=== PATIENT | female | born 1965 | race African-American/Black ===

== ENCOUNTER 2017-04-05 21:53 | Emergency (ER) | payer MEDICAID ==
[~2017-04-05] VITALS: Ht 170.2 cm; Wt 95.5 kg
[~2017-04-05 21:53] MED LIST: ASPI-1159 PO; COR6 PO; COZAAR; LOT10 PO; NITR0.4T3 SL
[2017-04-06 00:34] VITALS: BP 120/88
== END 2017-04-06 00:33 | disposition home or self-care (01) ==
LOC: ER 22:31
DX: F41.0 Panic disorder [episodic paroxysmal anxiety] (principal); R03.0 Elevated blood-pressure reading, without diagnosis of hypertension; R07.89 Other chest pain; Z88.8 Allergy status to other drugs, medicaments and biological substances; Z88.5 Allergy status to narcotic agent; Z79.899 Other long term (current) drug therapy
CPT/HCPCS: 93005; 99284; Z7610

== ENCOUNTER 2018-09-07 03:16 | Emergency (ER) | payer MEDICAID ==
[~2018-09-07] VITALS: Ht 170.2 cm; Wt 91.0 kg
[~2018-09-07 03:16] MED LIST changes: +ALPR2TAB2 MT; +AMLO10TA80 PO; -COZAAR; +LOSA25TA3 PO; -NITR0.4T3 SL; +NITR0.4T49 SL; +S350 MT
[2018-09-07] MEDS ORDERED: KETOROLAC 60MG/2ML VIAL IM STA (06:51)
[2018-09-07] MEDS ORDERED: IPRATROPIUM BROMIDE (0.02%) 0.5MG/2.5ML NEB HHN STA (06:51)
[2018-09-07] MEDS ORDERED: ALBUTEROL (0.083%) 2.5MG/3ML NEB HHN STA (06:51)
[2018-09-07 07:29] LABS: CLARITY URINE CLEAR (CLEAR); COLOR URINE AMBER (YELLOW); KETONES URINE NEGATIVE (NEGATIVE); LEUKOCYTE ESTERASE URINE NEGATIVE (NEGATIVE); NITRITE URINE NEGATIVE (NEGATIVE); OCCULT BLOOD URINE NEGATIVE (NEGATIVE); PROTEIN URINE 3+ (NEGATIVE); SPECIFIC GRAVITY URINE 1.031 (1.005-1.030)
[2018-09-07] MEDS ORDERED: METHYLPREDNISOLONE SOD SUCC 125 MG/2 ML VIAL IM STA (07:38)
[2018-09-07 08:03] LABS: BASOPHILS % 0.7 % (0.0-2.0); EOSINOPHILS % 1.1 % (0.0-5.0); HEMATOCRIT. 38.2 % (36.0-48.0); HEMOGLOBIN. 12.1 g/dL (12.0-16.0); LYMPHOCYTES % 19.7 % (20.0-50.0); MEAN CORPUSCULAR HEMOGLOBIN 25.4 pg (28.0-32.0); MEAN CORPUSCULAR VOLUME 79.9 fL (81.0-99.0); MEAN PLATELET VOLUME 7.6 fl (7.4-10.4); NEUTROPHILS % 73.5 % (40.0-76.0); PLATELET 263 x1000/uL (130-400); RED BLOOD CELL COUNT 4.78 mill/uL (4.2-5.4)
[2018-09-07 08:05] LABS: CHLORIDE 107 mEq/L (98-107)
[2018-09-07 08:56] VITALS: BP 159/99
== END 2018-09-07 09:00 | disposition home or self-care (01) ==
LOC: ER 03:16
DX: J20.9 Acute bronchitis, unspecified (principal); J45.909 Unspecified asthma, uncomplicated; F12.10 Cannabis abuse, uncomplicated; I25.2 Old myocardial infarction; E11.9 Type 2 diabetes mellitus without complications; I10 Essential (primary) hypertension; I25.10 Atherosclerotic heart disease of native coronary artery without angina pectoris; Z79.82 Long term (current) use of aspirin; Z79.899 Other long term (current) drug therapy; Z88.5 Allergy status to narcotic agent
CPT/HCPCS: 36415; 71045; 80053; 81003; 81025; 85025; 94640; 96372; 99284; J1885; J2930; J7611

== ENCOUNTER 2020-02-01 08:25 | Inpatient (IN) | payer MEDICAID ==
[~2020-02-01] VITALS: Ht 170.2 cm; Wt 120.3 kg
[~2020-02-01 08:25] MED LIST changes: -ASPI-1159 PO; +ASPI-1497 PO; +BENA10TA75 PO; +CARI350T28 MT; -LOT10 PO; -S350 MT
[2020-02-01] MEDS ORDERED: KETOROLAC 30MG/ML VIAL IV STA (08:49)
[2020-02-01 09:35] LABS: BASOPHILS % 0.9 % (0.0-2.0); EOSINOPHILS % 0.5 % (0.0-5.0); HEMOGLOBIN. 13.1 g/dL (12.0-16.0); MEAN CORPUSCULAR HEMOGLOBIN 25.4 pg (28.0-32.0); MEAN CORPUSCULAR VOLUME 79.3 fL (81.0-99.0); MEAN PLATELET VOLUME 7.9 fl (7.4-10.4); MONOCYTES % 9.1 % (2.0-8.0); NEUTROPHILS % 70.5 % (40.0-76.0); PLATELET 187 x1000/uL (130-400); RED BLOOD CELL COUNT 5.17 mill/uL (4.2-5.4); RED CELL DISTRIBUTION WIDTH 18.6 % (11.6-14.6)
[2020-02-01 09:39] LABS: CHLORIDE 102 mEq/L (98-107)
[2020-02-01 10:06] LABS: INR 1.2; PARTIAL THROMBOPLASTIN TIME 25.4 sec (23.4-31.0); PROTHROMBIN TIME 13.3 sec (9.6-11.0)
[2020-02-01] MEDS ORDERED: ASPIRIN 325MG TABLET PO ONE (10:15)
[2020-02-01] MEDS ORDERED: ASPIRIN 81MG EC TABLET PO NR (13:15)
[2020-02-01] MEDS ORDERED: FUROSEMIDE 40MG/4ML VIAL IVP NR (13:15)
[2020-02-01 13:34] LABS: *AMPHETAMINES SCREEN URINE NEGATIVE (NEGATIVE); *BARBITURATES SCREEN URINE NEGATIVE (NEGATIVE)
[2020-02-01 13:35] LABS: *BENZODIAZEPINES SCREEN URINE PRESUMTIVE POSITIVE (NEGATIVE); *COCAINE SCREEN URINE NEGATIVE (NEGATIVE); CANNABINOID URINE SCREEN PRESUMTIVE POSITIVE (NEGATIVE); METHADONE URINE SCREEN NEGATIVE (NEGATIVE); OPIATES URINE SCREEN NEGATIVE (NEGATIVE); PHENCYCLIDINE URINE SCREEN NEGATIVE (NEGATIVE)
[2020-02-01] MEDS ORDERED: ENOXAPARIN 40MG/0.4ML SYR SUBCUT SCH (13:45)
[2020-02-01] MEDS ORDERED: CLONIDINE 0.1MG TABLET PO PRN (13:45)
[2020-02-01] MEDS ORDERED: ONDANSETRON HCL 4MG/2ML INJ IV PRN (13:45)
[2020-02-01] MEDS ORDERED: ACETAMINOPHEN 325MG TABLET PO PRN (13:45)
[2020-02-01 14:06] LABS: PHOSPHORUS 3.3 mg/dL (2.5-4.9)
[2020-02-01] MEDS ORDERED: LOSARTAN POTASSIUM 25 MG TABLET PO NR (14:30)
[2020-02-01] MEDS ORDERED: CARVEDILOL 3.125 MG TABLET PO NR (14:30)
[2020-02-01] MEDS: ENOXAPARIN 30MG/0.3ML SYR SUBCUT SCH (14:41)
[2020-02-01] MEDS ORDERED: DEXTROSE 50% WATER 50ML SYRINGE IV PRN (19:15)
[2020-02-02] MEDS ORDERED: FUROSEMIDE 40MG/4ML VIAL IV SCH (03:05)
[2020-02-02 03:42] LABS: BASOPHILS % 0.8 % (0.0-2.0); HEMATOCRIT. 39.3 % (36.0-48.0); HEMOGLOBIN. 12.3 g/dL (12.0-16.0); LYMPHOCYTES % 21.5 % (20.0-50.0); MEAN CORPUSCULAR HEMOGLOBIN 25.1 pg (28.0-32.0); MEAN PLATELET VOLUME 7.9 fl (7.4-10.4); MONOCYTES % 12.6 % (2.0-8.0); NEUTROPHILS % 64.1 % (40.0-76.0); PLATELET 184 x1000/uL (130-400); RED BLOOD CELL COUNT 4.91 mill/uL (4.2-5.4); RED CELL DISTRIBUTION WIDTH 18.8 % (11.6-14.6)
[2020-02-02 03:52] LABS: CHLORIDE 104 mEq/L (98-107)
[2020-02-02 03:59] LABS: LDL CHOLESTEROL 51 mg/dL (5-100)
[2020-02-02 04:00] LABS: HDL CHOLESTEROL 19 mg/dL (40-59)
[2020-02-02 06:30] VITALS: BP 145/85
[2020-02-02] MEDS: INSULIN LISPRO (LOW DOSE) 100 UNITS/ML SUBCUT SCH ×3 (07:10→18:26)
[2020-02-02 08:00] VITALS: BP 134/89
[2020-02-02] MEDS: AMLODIPINE 5MG TABLET PO SCH ×2 (09:52→21:55)
[2020-02-02] MEDS: LOSARTAN POTASSIUM 25 MG TABLET PO SCH ×2 (09:53→21:55)
[2020-02-02] MEDS: CARVEDILOL 3.125 MG TABLET PO SCH ×2 (09:53→21:55)
[2020-02-02] MEDS: ENOXAPARIN 30MG/0.3ML SYR SUBCUT SCH ×2 (09:53→21:53)
[2020-02-02 10:44] VITALS: BP 134/89
[2020-02-02 12:00] VITALS: BP 119/81
[2020-02-02] MEDS: BLOOD SUGAR DIAGNOSTIC STRIP TEST SCH ×3 (12:17→21:55)
[2020-02-02 20:00] VITALS: BP 132/99
[2020-02-02] MEDS: ATORVASTATIN CALCIUM 20MG TABLET PO SCH (21:54)
[2020-02-02] MEDS: HYDROCODONE/ACETAMINOPHEN 5/325MG TABLET PO PRN (21:54)
[2020-02-03] VITALS: BP 103/59
[2020-02-03] MEDS: LORAZEPAM 2MG/ML CPJ IV PRN (00:08)
[2020-02-03] MEDS: INSULIN LISPRO (LOW DOSE) 100 UNITS/ML SUBCUT SCH ×5 (00:27→21:21)
[2020-02-03] MEDS: BLOOD SUGAR DIAGNOSTIC STRIP TEST SCH ×4 (06:32→21:17)
[2020-02-03 07:42] LABS: BASOPHILS % 0.6 % (0.0-2.0); HEMATOCRIT. 37.1 % (36.0-48.0); LYMPHOCYTES % 16.1 % (20.0-50.0); MEAN CORPUSCULAR HEMOGLOBIN 25.5 pg (28.0-32.0); MONOCYTES % 12.1 % (2.0-8.0); NEUTROPHILS % 70.2 % (40.0-76.0); PLATELET 187 x1000/uL (130-400); RED CELL DISTRIBUTION WIDTH 18.9 % (11.6-14.6)
[2020-02-03 07:45] LABS: CHLORIDE 101 mEq/L (98-107)
[2020-02-03 08:00] VITALS: BP_SYST 103; BP_SYST 142; BP_DIAS 68; BP_DIAS 82
[2020-02-03] MEDS: LOSARTAN POTASSIUM 25 MG TABLET PO SCH ×2 (09:00→21:16)
[2020-02-03] MEDS: AMLODIPINE 5MG TABLET PO SCH ×2 (09:00→21:19)
[2020-02-03] MEDS: CARVEDILOL 3.125 MG TABLET PO SCH ×2 (09:00→21:17)
[2020-02-03] MEDS ORDERED: IPRATROPIUM/ALBUTEROL 0.5-3(2.5)MG/3ML NEB HHN PRN (09:15)
[2020-02-03 09:51] LABS: BG BASE EXCESS -2.6 mmol/L (-2.0-2.0); BG CARBOXYHEMOGLOBIN 1.6 % (0.5-1.5); BG DEOXYHEMOGLOBIN 0.3 % (0.0-5.0); BG HCO3 ACT 24.5 mmol/L (22.0-26.0); BG METHEMOGLOBIN 0.8 % (0.0-1.5); BG OXYGEN SATURATION 99.7 % (92.0-98.5); BG OXYHEMOGLOBIN 97.3 % (94.0-97.0); BG PCO2 52.1 mmHg (35.0-45.0); BG PH 7.291 (7.350-7.450); BG PO2 463.7 mmHg (75.0-100.0); BG SAMPLE SITE LEFT RADIAL; BG TOTAL HEMOGLOBIN 13.3 g/dL (12.0-18.0); BG VENT MODE MASK - NRB
[2020-02-03] MEDS: ENOXAPARIN 30MG/0.3ML SYR SUBCUT SCH ×2 (11:26→21:16)
[2020-02-03] MEDS: FUROSEMIDE 40MG/4ML VIAL IV SCH (11:26)
[2020-02-03] MEDS ORDERED: LIDOCAINE HCL/PF 1% 2ML VIAL ONE (11:30)
[2020-02-03] MEDS: HYDROCODONE/ACETAMINOPHEN 5/325MG TABLET PO PRN ×2 (15:41→22:26)
[2020-02-03 16:00] VITALS: BP 139/79
[2020-02-03] MEDS ORDERED: IPRATROPIUM/ALBUTEROL 0.5-3(2.5)MG/3ML NEB HHN SCH (18:00)
[2020-02-03 20:00] VITALS: BP 120/81
[2020-02-03] MEDS: BUDESONIDE 0.5MG/2ML NEB HHN SCH (20:07)
[2020-02-03] MEDS: IPRATROPIUM/ALBUTEROL 0.5-3(2.5)MG/3ML NEB HHN SCH (20:07)
[2020-02-03] MEDS: ATORVASTATIN CALCIUM 20MG TABLET PO SCH (21:16)
[2020-02-04] VITALS: BP 112/71
[2020-02-04 04:00] VITALS: BP 110/84
[2020-02-04] MEDS: BLOOD SUGAR DIAGNOSTIC STRIP TEST SCH ×4 (06:40→21:00)
[2020-02-04] MEDS: INSULIN LISPRO (LOW DOSE) 100 UNITS/ML SUBCUT SCH ×4 (07:15→21:00)
[2020-02-04 08:00] VITALS: BP 112/84
[2020-02-04] MEDS: FUROSEMIDE 40MG/4ML VIAL IV SCH ×3 (09:00→17:44)
[2020-02-04] MEDS: ENOXAPARIN 30MG/0.3ML SYR SUBCUT SCH (09:00)
[2020-02-04] MEDS: AMLODIPINE 5MG TABLET PO SCH ×2 (09:01→21:00)
[2020-02-04] MEDS: CARVEDILOL 3.125 MG TABLET PO SCH ×2 (09:01→21:00)
[2020-02-04] MEDS: LOSARTAN POTASSIUM 25 MG TABLET PO SCH ×2 (09:01→21:00)
[2020-02-04] MEDS: IPRATROPIUM/ALBUTEROL 0.5-3(2.5)MG/3ML NEB HHN SCH ×3 (09:18→21:05)
[2020-02-04] MEDS: BUDESONIDE 0.5MG/2ML NEB HHN SCH ×2 (09:18→21:05)
[2020-02-04] MEDS ORDERED: DIAZEPAM 5 MG TABLET PO PRN (10:15)
[2020-02-04 12:00] VITALS: BP 109/80
[2020-02-04] MEDS: POTASSIUM CHLORIDE 20MEQ TABLET SR PO SCH (12:10)
[2020-02-04] MEDS: HYDROCODONE/ACETAMINOPHEN 5/325MG TABLET PO PRN ×2 (15:35→22:23)
[2020-02-04 16:00] VITALS: BP 114/85
[2020-02-04 20:00] VITALS: BP 108/81
[2020-02-04] MEDS: ATORVASTATIN CALCIUM 20MG TABLET PO SCH ×2 (22:14→22:23)
[2020-02-05] VITALS: BP 110/76
[2020-02-05] MEDS: LORAZEPAM 2MG/ML CPJ IV PRN (01:07)
[2020-02-05] MEDS: IPRATROPIUM/ALBUTEROL 0.5-3(2.5)MG/3ML NEB HHN SCH ×2 (02:10→20:56)
[2020-02-05 04:00] VITALS: BP 128/81
[2020-02-05] MEDS ORDERED: SODIUM CHLORIDE 0.45% 1,000 ML IV SCH (07:00)
[2020-02-05] MEDS: INSULIN LISPRO (LOW DOSE) 100 UNITS/ML SUBCUT SCH ×4 (07:09→21:49)
[2020-02-05] MEDS: BLOOD SUGAR DIAGNOSTIC STRIP TEST SCH ×4 (07:09→21:35)
[2020-02-05 07:24] LABS: BASOPHILS % 0.7 % (0.0-2.0); EOSINOPHILS % 0.9 % (0.0-5.0); HEMATOCRIT. 39.2 % (36.0-48.0); HEMOGLOBIN. 12.6 g/dL (12.0-16.0); LYMPHOCYTES % 23.9 % (20.0-50.0); MEAN CORPUSCULAR HEMOGLOBIN 25.2 pg (28.0-32.0); MEAN CORPUSCULAR VOLUME 78.6 fL (81.0-99.0); MEAN PLATELET VOLUME 7.6 fl (7.4-10.4); MONOCYTES % 10.7 % (2.0-8.0); NEUTROPHILS % 63.8 % (40.0-76.0); PLATELET 242 x1000/uL (130-400); RED BLOOD CELL COUNT 4.98 mill/uL (4.2-5.4); RED CELL DISTRIBUTION WIDTH 19.2 % (11.6-14.6)
[2020-02-05 08:00] VITALS: BP 135/95
[2020-02-05 08:59] LABS: CHLORIDE 100 mEq/L (98-107)
[2020-02-05] MEDS: POTASSIUM CHLORIDE 20MEQ TABLET SR PO SCH (09:00)
[2020-02-05] MEDS: FUROSEMIDE 40MG/4ML VIAL IV SCH (09:50)
[2020-02-05] MEDS: LOSARTAN POTASSIUM 25 MG TABLET PO SCH ×2 (09:50→21:38)
[2020-02-05] MEDS: CARVEDILOL 3.125 MG TABLET PO SCH ×2 (09:50→21:37)
[2020-02-05] MEDS: AMLODIPINE 5MG TABLET PO SCH ×2 (09:51→21:38)
[2020-02-05] MEDS ORDERED: DIAZEPAM 5 MG TABLET PO NR (10:45)
[2020-02-05 12:00] VITALS: BP 115/86
[2020-02-05] MEDS: SODIUM CHLORIDE 0.45% 1,000 ML IV SCH ×2 (14:02→16:28)
[2020-02-05 16:00] VITALS: BP 124/96
[2020-02-05] MEDS: BUDESONIDE 0.5MG/2ML NEB HHN SCH ×3 (16:05→20:57)
[2020-02-05 20:00] VITALS: BP 124/86
[2020-02-05] MEDS: HYDROCODONE/ACETAMINOPHEN 5/325MG TABLET PO PRN (21:56)
[2020-02-06] VITALS (12 sets, daily range): BP systolic 96–119; BP diastolic 50–92
[2020-02-06] MEDS: SODIUM CHLORIDE 0.45% 1,000 ML IV SCH ×4 (01:00→18:02)
[2020-02-06] MEDS: IPRATROPIUM/ALBUTEROL 0.5-3(2.5)MG/3ML NEB HHN SCH ×4 (01:26→16:05)
[2020-02-06 06:22] LABS: BASOPHILS % 0.5 % (0.0-2.0); EOSINOPHILS % 0.7 % (0.0-5.0); HEMATOCRIT. 38.2 % (36.0-48.0); HEMOGLOBIN. 12.3 g/dL (12.0-16.0); LYMPHOCYTES % 23.8 % (20.0-50.0); MEAN CORPUSCULAR HEMOGLOBIN 25.1 pg (28.0-32.0); MEAN CORPUSCULAR VOLUME 77.7 fL (81.0-99.0); MONOCYTES % 11.8 % (2.0-8.0); NEUTROPHILS % 63.2 % (40.0-76.0); PLATELET 253 x1000/uL (130-400); RED BLOOD CELL COUNT 4.92 mill/uL (4.2-5.4)
[2020-02-06] MEDS: BLOOD SUGAR DIAGNOSTIC STRIP TEST SCH ×4 (06:25→21:00)
[2020-02-06] MEDS: INSULIN LISPRO (LOW DOSE) 100 UNITS/ML SUBCUT SCH ×4 (06:27→21:00)
[2020-02-06 06:34] LABS: CHLORIDE 101 mEq/L (98-107)
[2020-02-06] MEDS ORDERED: ASPIRIN/SOD BICARB/CITRIC ACID 324MG TAB EFF ONE (07:53)
[2020-02-06] MEDS ORDERED: LIDOCAINE HCL 1% 20ML VIAL (Pyxis) INJ ONE (08:22)
[2020-02-06] MEDS ORDERED: IODIXANOL 320MG/ML 100 ML BOTTLE IV ONE ×2 (08:22→09:33)
[2020-02-06] MEDS ORDERED: FENTANYL CITRATE/PF 50MCG/ML 2ML VIAL ONE (08:23)
[2020-02-06] MEDS ORDERED: MIDAZOLAM HCL 2 MG/2 ML VIAL ONE ×2 (08:23→09:16)
[2020-02-06] MEDS: LOSARTAN POTASSIUM 25 MG TABLET PO SCH ×2 (09:00→21:00)
[2020-02-06] MEDS: AMLODIPINE 5MG TABLET PO SCH ×2 (09:00→21:00)
[2020-02-06] MEDS: CARVEDILOL 3.125 MG TABLET PO SCH ×2 (09:00→21:00)
[2020-02-06] MEDS: POTASSIUM CHLORIDE 20MEQ TABLET SR PO SCH (09:00)
[2020-02-06] MEDS ORDERED: NITROGLYCERIN 0.4MG TABLET SL SL ONE (09:15)
[2020-02-06] MEDS ORDERED: FUROSEMIDE 40MG/4ML VIAL ONE (09:59)
[2020-02-06] MEDS ORDERED: CLOPIDOGREL 75MG TABLET PO SCH (10:00)
[2020-02-06] MEDS ORDERED: ONDANSETRON HCL 4MG/2ML INJ IV PRN (10:00)
[2020-02-06] MEDS ORDERED: SODIUM CHLORIDE 0.45% 375 ML IV ONE (10:00)
[2020-02-06] MEDS ORDERED: ATROPINE SULFATE 1MG/10ML SYR IV PRN (10:00)
[2020-02-06] MEDS ORDERED: ACETAMINOPHEN 325MG TABLET PO PRN (10:00)
[2020-02-06] MEDS ORDERED: NICARDIPINE 100MCG/ML 10ML VIAL (CATH LAB) IV ONE (10:36)
[2020-02-06] MEDS ORDERED: HEPARIN SODIUM 1,000 UNIT/1ML VIAL IV ONE (10:36)
[2020-02-06] MEDS ORDERED: NITROGLYCERIN 50MCG/ML 10ML VIAL (CATH LAB) IV ONE (10:36)
[2020-02-06] MEDS ORDERED: DIAZEPAM 5 MG TABLET PO SCH ×2 (11:00→11:30)
[2020-02-06] MEDS: HYDROCODONE/ACETAMINOPHEN 5/325MG TABLET PO PRN (11:19)
[2020-02-06] MEDS: BUDESONIDE 0.5MG/2ML NEB HHN SCH (16:05)
[2020-02-06] MEDS: FUROSEMIDE 40MG TABLET PO SCH (17:14)
[2020-02-06] MEDS: ATORVASTATIN CALCIUM 20MG TABLET PO SCH (21:48)
[2020-02-07] VITALS (7 sets, daily range): BP systolic 119–155; BP diastolic 50–95
[2020-02-07] MEDS: SODIUM CHLORIDE 0.45% 1,000 ML IV SCH ×2 (01:00→08:54)
[2020-02-07] MEDS: HYDROCODONE/ACETAMINOPHEN 5/325MG TABLET PO PRN (03:15)
[2020-02-07] MEDS: BLOOD SUGAR DIAGNOSTIC STRIP TEST SCH ×2 (05:58→11:50)
[2020-02-07] MEDS: INSULIN LISPRO (LOW DOSE) 100 UNITS/ML SUBCUT SCH ×2 (05:59→12:20)
[2020-02-07 08:54] LABS: BASOPHILS % 0.4 % (0.0-2.0); EOSINOPHILS % 0.4 % (0.0-5.0); HEMATOCRIT. 40.3 % (36.0-48.0); HEMOGLOBIN. 12.8 g/dL (12.0-16.0); LYMPHOCYTES % 17.4 % (20.0-50.0); MEAN CORPUSCULAR HEMOGLOBIN 25.1 pg (28.0-32.0); MEAN CORPUSCULAR VOLUME 78.8 fL (81.0-99.0); MEAN PLATELET VOLUME 7.3 fl (7.4-10.4); MONOCYTES % 13.2 % (2.0-8.0); NEUTROPHILS % 68.6 % (40.0-76.0); PLATELET 237 x1000/uL (130-400); RED BLOOD CELL COUNT 5.11 mill/uL (4.2-5.4); RED CELL DISTRIBUTION WIDTH 19.1 % (11.6-14.6)
[2020-02-07] MEDS ORDERED: CLOPIDOGREL 75MG TABLET PO SCH (09:00)
[2020-02-07] MEDS ORDERED: ASPIRIN 325MG TABLET PO SCH (09:00)
[2020-02-07 09:05] LABS: CHLORIDE 100 mEq/L (98-107)
[2020-02-07] MEDS: POTASSIUM CHLORIDE 20MEQ TABLET SR PO SCH (09:13)
[2020-02-07] MEDS: LOSARTAN POTASSIUM 25 MG TABLET PO SCH (09:13)
[2020-02-07] MEDS: AMLODIPINE 5MG TABLET PO SCH (09:15)
[2020-02-07] MEDS: CARVEDILOL 3.125 MG TABLET PO SCH (09:16)
[2020-02-07] MEDS: FUROSEMIDE 40MG TABLET PO SCH (09:16)
[2020-02-07] MEDS: IPRATROPIUM/ALBUTEROL 0.5-3(2.5)MG/3ML NEB HHN SCH (09:41)
[2020-02-07] MEDS ORDERED: COR3 PO (12:13)
[2020-02-07] MEDS ORDERED: POTA20TA82 PO (12:13)
[2020-02-07] MEDS ORDERED: IPRA3AMP9 HHN (12:13)
[2020-02-07] MEDS ORDERED: AMLO5TAB88 PO (12:13)
[2020-02-07] MEDS ORDERED: FURO40TA5 PO (12:13)
[2020-02-07] MEDS ORDERED: ATOR20TA PO (12:13)
[2020-02-07] MEDS ORDERED: CLOP75TA15 PO (12:13)
[2020-02-07] MEDS ORDERED: ASPI-1160 PO (12:13)
[2020-02-07] MEDS ORDERED: ALBU6.7H9 INH (12:13)
[2020-02-07] MEDS ORDERED: LOSA25TA3 PO (12:13)
[2020-02-08] MEDS ORDERED: ASPIRIN 81MG TABLET PO SCH (09:00)
== END 2020-02-07 15:48 | disposition home or self-care (01) | DRG 174 ==
LOC: ER 08:25 → 7EST 12:04 → EDBEDREQ 19:30 → ENRESERV 02-02 04:54 → 5WST 02-02 15:12 → 3WST 02-06 10:38
PROVIDERS: ADMIT Internal Medicine; ATTEND Internal Medicine
PROC: 5A09357 Assistance with Respiratory Ventilation, Less than 24 Consecutive Hours, Continuous Positive Airway Pressure (ICD-10-PCS; 2020-02-03)
PROC: 5A09357 Assistance with Respiratory Ventilation, Less than 24 Consecutive Hours, Continuous Positive Airway Pressure (ICD-10-PCS; 2020-02-04)
PROC: B2111ZZ Fluoroscopy of Multiple Coronary Arteries using Low Osmolar Contrast (ICD-10-PCS; principal; 2020-02-06)
PROC: 027034Z Dilation of Coronary Artery, One Artery with Drug-eluting Intraluminal Device, Percutaneous Approach (ICD-10-PCS; 2020-02-06)
PROC: 06BP3ZZ Excision of Right Saphenous Vein, Percutaneous Approach (ICD-10-PCS; 2020-02-06)
PROC: 4A023N7 Measurement of Cardiac Sampling and Pressure, Left Heart, Percutaneous Approach (ICD-10-PCS; 2020-02-06)
DX: I21.4 Non-ST elevation (NSTEMI) myocardial infarction (principal); J96.02 Acute respiratory failure with hypercapnia; I50.23 Acute on chronic systolic (congestive) heart failure; E44.0 Moderate protein-calorie malnutrition; Z68.41 Body mass index [BMI] 40.0-44.9, adult; J44.1 Chronic obstructive pulmonary disease with (acute) exacerbation; I11.0 Hypertensive heart disease with heart failure; E11.9 Type 2 diabetes mellitus without complications; E78.5 Hyperlipidemia, unspecified; F17.210 Nicotine dependence, cigarettes, uncomplicated; I25.10 Atherosclerotic heart disease of native coronary artery without angina pectoris; M46.90 Unspecified inflammatory spondylopathy, site unspecified; M47.9 Spondylosis, unspecified; M48.061 Spinal stenosis, lumbar region without neurogenic claudication; M51.36 Other intervertebral disc degeneration, lumbar region; E66.9 Obesity, unspecified; I25.5 Ischemic cardiomyopathy; I34.0 Nonrheumatic mitral (valve) insufficiency; R26.81 Unsteadiness on feet; F12.90 Cannabis use, unspecified, uncomplicated; Z20.828 Contact with and (suspected) exposure to other viral communicable diseases; I25.2 Old myocardial infarction; Z79.82 Long term (current) use of aspirin; Z95.1 Presence of aortocoronary bypass graft; Z88.5 Allergy status to narcotic agent; Z79.899 Other long term (current) drug therapy; Z59.0 Homelessness; Z79.02 Long term (current) use of antithrombotics/antiplatelets
CPT/HCPCS: 36415; 36600; 71045; 72131; 80048; 80053; 80061; 80305; 82375; 82805; 82962; 83735; 83880; 84100; 84443; 84484; 85025; 92928; 93005; 93306; 93459; 93970; 97162; 97530; 99285; C1760; C1769; C1874; C1887; C1893; J1644; J1650; J1815; J1885; J1940; J2060; J2250; J3010; J3490; J7626; Q9967; U0003

== ENCOUNTER 2020-03-12 20:22 | Inpatient (IN) | payer MEDICAID ==
[~2020-03-12] VITALS: Ht 165.1 cm; Wt 103.2 kg
[~2020-03-12 20:22] MED LIST changes: +ALBU6.7H9 INH; -AMLO10TA80 PO; +AMLO5TAB88 PO; +ASPI-1160 PO; -ASPI-1497 PO; +ATOR20TA PO; -BENA10TA75 PO; +CLOP75TA15 PO; +COR3 PO; -COR6 PO; +FURO40TA5 PO; +IPRA3AMP9 HHN; -NITR0.4T49 SL; +POTA20TA82 PO
[2020-03-13 01:40] LABS: CHLORIDE 102 mEq/L (98-107)
[2020-03-13 01:44] LABS: ETHANOL BLOOD < 10 mg/dL
[2020-03-13 02:01] LABS: *AMPHETAMINES SCREEN URINE NEGATIVE (NEGATIVE); *COCAINE SCREEN URINE NEGATIVE (NEGATIVE); METHADONE URINE SCREEN NEGATIVE (NEGATIVE); OPIATES URINE SCREEN NEGATIVE (NEGATIVE); PHENCYCLIDINE URINE SCREEN NEGATIVE (NEGATIVE)
[2020-03-13 02:02] LABS: *BARBITURATES SCREEN URINE NEGATIVE (NEGATIVE); *BENZODIAZEPINES SCREEN URINE NEGATIVE (NEGATIVE)
[2020-03-13 02:04] LABS: CANNABINOID URINE SCREEN PRESUMTIVE POSITIVE (NEGATIVE)
[2020-03-13] MEDS ORDERED: FUROSEMIDE 100MG/10ML VIAL IVP SCH (02:15)
[2020-03-13] MEDS ORDERED: ASPIRIN 325MG EC TABLET PO SCH (02:15)
[2020-03-13 02:29] LABS: CLARITY URINE CLEAR (CLEAR); COLOR URINE DARK YELLOW (YELLOW); KETONES URINE TRACE (NEGATIVE); LEUKOCYTE ESTERASE URINE TRACE (NEGATIVE); NITRITE URINE NEGATIVE (NEGATIVE); OCCULT BLOOD URINE NEGATIVE (NEGATIVE); PH URINE 5.5 (4.5-8.0); PROTEIN URINE 2+ (NEGATIVE); SPECIFIC GRAVITY URINE 1.026 (1.005-1.030)
[2020-03-13 02:30] LABS: BASOPHILS % 0.4 % (0.0-2.0); EOSINOPHILS % 0.3 % (0.0-5.0); HEMATOCRIT. 39.1 % (36.0-48.0); HEMOGLOBIN. 12.5 g/dL (12.0-16.0); LYMPHOCYTES % 13.3 % (20.0-50.0); MEAN CORPUSCULAR HEMOGLOBIN 24.4 pg (28.0-32.0); MEAN CORPUSCULAR VOLUME 76.3 fL (81.0-99.0); MEAN PLATELET VOLUME 7.4 fl (7.4-10.4); MONOCYTES % 10.2 % (2.0-8.0); NEUTROPHILS % 75.8 % (40.0-76.0); PLATELET 233 x1000/uL (130-400); RED BLOOD CELL COUNT 5.13 mill/uL (4.2-5.4)
[2020-03-13] MEDS ORDERED: SODIUM CHLORIDE 0.9% 1,000 ML IV ONE (02:30)
[2020-03-13 02:36] LABS: INR 1.3
[2020-03-13] MEDS ORDERED: IBUPROFEN 600MG TABLET PO ONE (02:45)
[2020-03-13] MEDS: HYDROCODONE/ACETAMINOPHEN 10/325MG TABLET PO PRN (10:05)
[2020-03-13] MEDS ORDERED: MAGNESIUM/ALUMINUM HYDROXIDE/SIMETHICONE 30ML UDC PO PRN (11:15)
[2020-03-13] MEDS ORDERED: IPRATROPIUM/ALBUTEROL 0.5-3(2.5)MG/3ML NEB NEB PRN (11:15)
[2020-03-13] MEDS ORDERED: CLONIDINE 0.1MG TABLET PO PRN (11:15)
[2020-03-13] MEDS ORDERED: NA PHOS,M-B/NA PHOS,DI-BA ENEMA 118ML PR PRN (11:15)
[2020-03-13] MEDS ORDERED: LORAZEPAM 2MG/ML CPJ IV PRN (11:15)
[2020-03-13] MEDS ORDERED: HYDRALAZINE 20MG/ML VIAL IV PRN (11:15)
[2020-03-13] MEDS ORDERED: DEXTROSE 50% WATER 50ML SYRINGE IV PRN (11:15)
[2020-03-13] MEDS ORDERED: GUAIFENESIN 200MG/10ML SUGAR FREE UDC PO PRN (11:15)
[2020-03-13] MEDS ORDERED: DOCUSATE SODIUM 100MG CAPSULE PO PRN (11:15)
[2020-03-13] MEDS ORDERED: DIPHENHYDRAMINE 50MG/ML VIAL IV PRN (11:15)
[2020-03-13] MEDS ORDERED: ONDANSETRON HCL 4MG/2ML INJ IV PRN (11:15)
[2020-03-13] MEDS: ENOXAPARIN 40MG/0.4ML SYR SUBCUT SCH (11:30)
[2020-03-13] MEDS: BLOOD SUGAR DIAGNOSTIC STRIP TEST SCH ×3 (13:00→21:00)
[2020-03-13] MEDS: INSULIN LISPRO 100 UNITS/ML SUBCUT SCH ×3 (13:20→21:00)
[2020-03-13] MEDS: SODIUM CHLORIDE 0.9% INJ 3ML FLUSH IVF SCH ×2 (14:17→22:00)
[2020-03-13 15:25] LABS: CREATINE KINASE MB FRACTION 1.2 ng/mL (0.5-3.6)
[2020-03-13] MEDS ORDERED: POTASSIUM CHLORIDE 20MEQ TABLET SR PO NR (16:07)
[2020-03-13] MEDS: CARVEDILOL 3.125 MG TABLET PO SCH (17:00)
[2020-03-13] MEDS ORDERED: CEFTRIAXONE 1 G PREMIX 50 ML IV SCH (17:31)
[2020-03-13] MEDS ORDERED: AZITHROMYCIN 500 MG in DEXT 5% WATER 250 ML IV SCH (18:00)
[2020-03-13] MEDS: ASPIRIN 81MG EC TABLET PO SCH (19:15)
[2020-03-13] MEDS: ATORVASTATIN CALCIUM 20MG TABLET PO SCH (21:00)
[2020-03-14 00:29] LABS: CREATINE KINASE MB FRACTION 1.5 ng/mL (0.5-3.6)
[2020-03-14 00:31] LABS: BG CARBOXYHEMOGLOBIN 0.9 % (0.5-1.5); BG DEOXYHEMOGLOBIN 1.2 % (0.0-5.0); BG FRACTION INSPIRED OXYGEN 44; BG HCO3 ACT 29.6 mmol/L (22.0-26.0); BG METHEMOGLOBIN 0.4 % (0.0-1.5); BG OXYGEN SATURATION 98.8 % (92.0-98.5); BG OXYHEMOGLOBIN 97.5 % (94.0-97.0); BG PH 7.311 (7.350-7.450); BG PO2 149.8 mmHg (75.0-100.0); BG SAMPLE SITE LEFT RADIAL; BG VENT MODE NASAL CANNULA
[2020-03-14 01:58] VITALS: BP 117/97
[2020-03-14] MEDS: INSULIN LISPRO 100 UNITS/ML SUBCUT SCH ×4 (07:15→21:00)
[2020-03-14 08:00] VITALS: BP 135/83
[2020-03-14] MEDS ORDERED: AMLODIPINE 10MG TABLET PO SCH (09:00)
[2020-03-14 09:46] LABS: BG BASE EXCESS 2.6 mmol/L (-2.0-2.0); BG DEOXYHEMOGLOBIN 5.2 % (0.0-5.0); BG FRACTION INSPIRED OXYGEN 36; BG HCO3 ACT 30.9 mmol/L (22.0-26.0); BG METHEMOGLOBIN 0.2 % (0.0-1.5); BG OXYGEN SATURATION 94.7 % (92.0-98.5); BG OXYHEMOGLOBIN 93.6 % (94.0-97.0); BG PCO2 66.4 mmHg (35.0-45.0); BG PH 7.286 (7.350-7.450); BG PO2 80.4 mmHg (75.0-100.0); BG SAMPLE SITE RIGHT BRACHIAL; BG TOTAL HEMOGLOBIN 12.6 g/dL (12.0-18.0); BG VENT MODE NASAL CANNULA
[2020-03-14] MEDS: ENOXAPARIN 40MG/0.4ML SYR SUBCUT SCH (09:46)
[2020-03-14] MEDS: CLOPIDOGREL 75MG TABLET PO SCH (09:48)
[2020-03-14] MEDS: CARVEDILOL 3.125 MG TABLET PO SCH ×2 (09:48→17:00)
[2020-03-14] MEDS: ASPIRIN 81MG EC TABLET PO SCH ×2 (09:48→18:53)
[2020-03-14] MEDS ORDERED: AMLODIPINE 5MG TABLET PO NR (10:00)
[2020-03-14 11:23] LABS: BASOPHILS % 0.5 % (0.0-2.0); EOSINOPHILS % 0.2 % (0.0-5.0); HEMATOCRIT. 36.6 % (36.0-48.0); HEMOGLOBIN. 11.7 g/dL (12.0-16.0); LYMPHOCYTES % 9.5 % (20.0-50.0); MEAN CORPUSCULAR HEMOGLOBIN 24.9 pg (28.0-32.0); MEAN CORPUSCULAR VOLUME 77.7 fL (81.0-99.0); MEAN PLATELET VOLUME 6.9 fl (7.4-10.4); MONOCYTES % 10.9 % (2.0-8.0); NEUTROPHILS % 78.9 % (40.0-76.0); PLATELET 187 x1000/uL (130-400); RED BLOOD CELL COUNT 4.71 mill/uL (4.2-5.4); RED CELL DISTRIBUTION WIDTH 20.2 % (11.6-14.6)
[2020-03-14 11:27] LABS: CHLORIDE 102 mEq/L (98-107)
[2020-03-14] MEDS: BLOOD SUGAR DIAGNOSTIC STRIP TEST SCH ×3 (11:45→20:38)
[2020-03-14 12:00] VITALS: BP 115/74
[2020-03-14] MEDS: SODIUM CHLORIDE 0.9% INJ 3ML FLUSH IVF SCH ×2 (14:05→21:40)
[2020-03-14 16:00] VITALS: BP 103/61
[2020-03-14] MEDS ORDERED: FUROSEMIDE 40MG/4ML VIAL IVP NR (16:00)
[2020-03-14] MEDS ORDERED: LORAZEPAM 0.5MG TABLET PO PRN (16:30)
[2020-03-14] MEDS: METHYLPREDNISOLONE SOD SUCC 40 MG/ML VIAL IV SCH ×2 (18:53→23:08)
[2020-03-14] MEDS: CEFTRIAXONE 1 G PREMIX 50 ML IV SCH (18:53)
[2020-03-14 20:00] VITALS: BP 108/67
[2020-03-14] MEDS: ACETAMINOPHEN 325MG TABLET PO PRN (20:58)
[2020-03-14] MEDS: ATORVASTATIN CALCIUM 20MG TABLET PO SCH (20:58)
[2020-03-14] MEDS: IPRATROPIUM/ALBUTEROL 0.5-3(2.5)MG/3ML NEB HHN SCH (21:06)
[2020-03-14] MEDS: AZITHROMYCIN 500MG in DEXTROSE 5% WATER 250ML IV SCH (23:05)
[2020-03-15] VITALS: BP 125/73
[2020-03-15] MEDS: IPRATROPIUM/ALBUTEROL 0.5-3(2.5)MG/3ML NEB HHN SCH ×4 (01:44→20:11)
[2020-03-15 04:00] VITALS: BP 120/65
[2020-03-15] MEDS: SODIUM CHLORIDE 0.9% INJ 3ML FLUSH IVF SCH ×3 (05:03→21:40)
[2020-03-15] MEDS: BLOOD SUGAR DIAGNOSTIC STRIP TEST SCH ×4 (05:59→21:40)
[2020-03-15 06:38] LABS: BASOPHILS % 0.1 % (0.0-2.0); HEMATOCRIT. 36.8 % (36.0-48.0); HEMOGLOBIN. 11.9 g/dL (12.0-16.0); LYMPHOCYTES % 8.7 % (20.0-50.0); MEAN CORPUSCULAR HEMOGLOBIN 24.8 pg (28.0-32.0); MEAN CORPUSCULAR VOLUME 76.3 fL (81.0-99.0); MEAN PLATELET VOLUME 7.1 fl (7.4-10.4); MONOCYTES % 1.3 % (2.0-8.0); NEUTROPHILS % 89.9 % (40.0-76.0); PLATELET 198 x1000/uL (130-400); RED BLOOD CELL COUNT 4.82 mill/uL (4.2-5.4); RED CELL DISTRIBUTION WIDTH 19.6 % (11.6-14.6)
[2020-03-15] MEDS: INSULIN LISPRO 100 UNITS/ML SUBCUT SCH ×4 (07:15→21:00)
[2020-03-15 07:26] LABS: CHLORIDE 100 mEq/L (98-107)
[2020-03-15 08:00] VITALS: BP 130/82
[2020-03-15] MEDS: METHYLPREDNISOLONE SOD SUCC 40 MG/ML VIAL IV SCH ×2 (08:57→16:41)
[2020-03-15] MEDS: ENOXAPARIN 40MG/0.4ML SYR SUBCUT SCH (08:58)
[2020-03-15] MEDS ORDERED: LORAZEPAM 0.5MG TABLET PO NR (09:00)
[2020-03-15] MEDS ORDERED: IOHEXOL-350 100 ML BOTTLE ONE (10:43)
[2020-03-15 12:00] VITALS: BP 134/86
[2020-03-15] MEDS: AMLODIPINE 10MG TABLET PO SCH (12:54)
[2020-03-15] MEDS: ASPIRIN 81MG EC TABLET PO SCH ×2 (12:55→16:40)
[2020-03-15] MEDS: CLOPIDOGREL 75MG TABLET PO SCH (12:55)
[2020-03-15] MEDS: CARVEDILOL 3.125 MG TABLET PO SCH ×2 (12:55→16:41)
[2020-03-15] MEDS ORDERED: FUROSEMIDE 40MG/4ML VIAL IVP NR (15:30)
[2020-03-15 16:00] VITALS: BP 129/75
[2020-03-15] MEDS: CEFTRIAXONE 1 G PREMIX 50 ML IV SCH (16:41)
[2020-03-15] MEDS: ACETAMINOPHEN 325MG TABLET PO PRN (17:24)
[2020-03-15 20:00] VITALS: BP 116/80
[2020-03-15] MEDS: AZITHROMYCIN 500MG in DEXTROSE 5% WATER 250ML IV SCH (21:39)
[2020-03-15] MEDS: ATORVASTATIN CALCIUM 20MG TABLET PO SCH (21:39)
[2020-03-15] MEDS: HYDROCODONE/ACETAMINOPHEN 10/325MG TABLET PO PRN (22:38)
[2020-03-16] VITALS: BP 119/78
[2020-03-16] MEDS: METHYLPREDNISOLONE SOD SUCC 40 MG/ML VIAL IV SCH ×4 (00:54→23:23)
[2020-03-16] MEDS: IPRATROPIUM/ALBUTEROL 0.5-3(2.5)MG/3ML NEB HHN SCH ×4 (02:50→21:35)
[2020-03-16 04:00] VITALS: BP 145/96
[2020-03-16] MEDS: SODIUM CHLORIDE 0.9% INJ 3ML FLUSH IVF SCH ×3 (06:42→22:07)
[2020-03-16] MEDS: BLOOD SUGAR DIAGNOSTIC STRIP TEST SCH ×4 (06:58→21:00)
[2020-03-16] MEDS: INSULIN LISPRO 100 UNITS/ML SUBCUT SCH ×4 (06:59→21:00)
[2020-03-16 08:00] VITALS: BP 130/84
[2020-03-16 09:32] LABS: BG BASE EXCESS 0.4 mmol/L (-2.0-2.0); BG CARBOXYHEMOGLOBIN 1.1 % (0.5-1.5); BG DEOXYHEMOGLOBIN 15.3 % (0.0-5.0); BG HCO3 ACT 25.7 mmol/L (22.0-26.0); BG METHEMOGLOBIN 0.4 % (0.0-1.5); BG OXYGEN SATURATION 84.5 % (92.0-98.5); BG OXYHEMOGLOBIN 83.2 % (94.0-97.0); BG PCO2 44.1 mmHg (35.0-45.0); BG PH 7.384 (7.350-7.450); BG PO2 53.8 mmHg (75.0-100.0); BG SAMPLE SITE RIGHT BRACHIAL; BG TOTAL HEMOGLOBIN 13.4 g/dL (12.0-18.0); BG VENT MODE ROOM AIR
[2020-03-16] MEDS: ENOXAPARIN 30MG/0.3ML SYR SUBCUT SCH ×2 (10:23→21:00)
[2020-03-16] MEDS: CLOPIDOGREL 75MG TABLET PO SCH (10:24)
[2020-03-16] MEDS: ASPIRIN 81MG EC TABLET PO SCH ×2 (10:24→16:57)
[2020-03-16] MEDS: AMLODIPINE 10MG TABLET PO SCH (10:25)
[2020-03-16] MEDS: CARVEDILOL 3.125 MG TABLET PO SCH ×2 (10:25→16:57)
[2020-03-16 12:00] VITALS: BP 126/85
[2020-03-16] MEDS: HYDROCODONE/ACETAMINOPHEN 10/325MG TABLET PO PRN (14:28)
[2020-03-16 16:00] VITALS: BP 126/84
[2020-03-16] MEDS: CEFTRIAXONE 1 G PREMIX 50 ML IV SCH (17:41)
[2020-03-16 20:00] VITALS: BP 130/91
[2020-03-16] MEDS: ATORVASTATIN CALCIUM 20MG TABLET PO SCH (22:04)
[2020-03-16] MEDS: AZITHROMYCIN 500MG in DEXTROSE 5% WATER 250ML IV SCH (22:07)
[2020-03-17] VITALS (7 sets, daily range): BP systolic 107–147; BP diastolic 73–95
[2020-03-17] MEDS: IPRATROPIUM/ALBUTEROL 0.5-3(2.5)MG/3ML NEB HHN SCH ×4 (01:45→21:45)
[2020-03-17] MEDS: SODIUM CHLORIDE 0.9% INJ 3ML FLUSH IVF SCH ×3 (05:21→21:19)
[2020-03-17] MEDS: BLOOD SUGAR DIAGNOSTIC STRIP TEST SCH ×4 (06:35→20:55)
[2020-03-17] MEDS: INSULIN LISPRO 100 UNITS/ML SUBCUT SCH ×4 (06:56→21:40)
[2020-03-17 07:28] LABS: HEMATOCRIT. 34.6 % (36.0-48.0); HEMOGLOBIN. 11.2 g/dL (12.0-16.0); MEAN CORPUSCULAR HEMOGLOBIN 24.6 pg (28.0-32.0); MEAN CORPUSCULAR VOLUME 75.6 fL (81.0-99.0); MEAN PLATELET VOLUME 7.4 fl (7.4-10.4); PLATELET 191 x1000/uL (130-400); RED BLOOD CELL COUNT 4.58 mill/uL (4.2-5.4); RED CELL DISTRIBUTION WIDTH 19.5 % (11.6-14.6)
[2020-03-17] MEDS: CLOPIDOGREL 75MG TABLET PO SCH (08:49)
[2020-03-17] MEDS: AMLODIPINE 10MG TABLET PO SCH (08:49)
[2020-03-17] MEDS: METHYLPREDNISOLONE SOD SUCC 40 MG/ML VIAL IV SCH ×3 (08:49→23:07)
[2020-03-17] MEDS: CARVEDILOL 3.125 MG TABLET PO SCH ×2 (08:49→18:04)
[2020-03-17] MEDS: ASPIRIN 81MG EC TABLET PO SCH ×2 (08:49→18:04)
[2020-03-17] MEDS: ENOXAPARIN 30MG/0.3ML SYR SUBCUT SCH ×2 (08:50→21:22)
[2020-03-17] MEDS ORDERED: FUROSEMIDE 40MG/4ML VIAL IVP SCH (13:15)
[2020-03-17 13:40] LABS: ATYPICAL LYMPHOCYTES 1; PLATELET ESTIMATE NORMAL
[2020-03-17] MEDS ORDERED: INSULIN LISPRO 100 UNITS/ML SUBCUT NR ×3 (17:52→21:15)
[2020-03-17] MEDS: CEFTRIAXONE 1 G PREMIX 50 ML IV SCH (18:04)
[2020-03-17] MEDS: ATORVASTATIN CALCIUM 20MG TABLET PO SCH (20:14)
[2020-03-17] MEDS: LOSARTAN POTASSIUM 25 MG TABLET PO SCH (20:14)
[2020-03-17] MEDS: HYDROCODONE/ACETAMINOPHEN 10/325MG TABLET PO PRN (20:21)
[2020-03-17] MEDS: AZITHROMYCIN 500 MG TABLET PO SCH (21:18)
[2020-03-17] MEDS: ZOLPIDEM TARTRATE 5MG TABLET PO PRN (21:37)
[2020-03-18] VITALS: BP 133/100
[2020-03-18] MEDS: IPRATROPIUM/ALBUTEROL 0.5-3(2.5)MG/3ML NEB HHN SCH ×4 (01:31→21:16)
[2020-03-18 04:00] VITALS: BP 139/86
[2020-03-18] MEDS: BLOOD SUGAR DIAGNOSTIC STRIP TEST SCH ×4 (05:40→20:49)
[2020-03-18] MEDS: INSULIN LISPRO 100 UNITS/ML SUBCUT SCH ×4 (05:40→21:15)
[2020-03-18] MEDS: SODIUM CHLORIDE 0.9% INJ 3ML FLUSH IVF SCH ×3 (05:41→21:16)
[2020-03-18 07:41] LABS: HEMATOCRIT. 37.1 % (36.0-48.0); HEMOGLOBIN. 12.3 g/dL (12.0-16.0); MEAN CORPUSCULAR HEMOGLOBIN 24.6 pg (28.0-32.0); MEAN CORPUSCULAR VOLUME 74.5 fL (81.0-99.0); MEAN PLATELET VOLUME 8.5 fl (7.4-10.4); PLATELET 221 x1000/uL (130-400); RED BLOOD CELL COUNT 4.98 mill/uL (4.2-5.4); RED CELL DISTRIBUTION WIDTH 19.5 % (11.6-14.6)
[2020-03-18 08:30] VITALS: BP 132/96
[2020-03-18] MEDS: FUROSEMIDE 40MG/4ML VIAL IVP SCH (09:52)
[2020-03-18] MEDS: AMLODIPINE 10MG TABLET PO SCH (09:52)
[2020-03-18] MEDS: METHYLPREDNISOLONE SOD SUCC 40 MG/ML VIAL IV SCH ×3 (09:52→23:24)
[2020-03-18] MEDS: CLOPIDOGREL 75MG TABLET PO SCH (09:52)
[2020-03-18] MEDS: ASPIRIN 81MG EC TABLET PO SCH ×2 (09:53→17:35)
[2020-03-18] MEDS: LOSARTAN POTASSIUM 25 MG TABLET PO SCH ×2 (09:53→20:04)
[2020-03-18] MEDS: CARVEDILOL 3.125 MG TABLET PO SCH ×2 (09:53→17:39)
[2020-03-18] MEDS: ENOXAPARIN 30MG/0.3ML SYR SUBCUT SCH ×2 (09:54→20:04)
[2020-03-18 10:37] LABS: BG BASE EXCESS 1.3 mmol/L (-2.0-2.0); BG CARBOXYHEMOGLOBIN 0.6 % (0.5-1.5); BG DEOXYHEMOGLOBIN 9.5 % (0.0-5.0); BG FRACTION INSPIRED OXYGEN 21; BG HCO3 ACT 26.7 mmol/L (22.0-26.0); BG METHEMOGLOBIN 0.4 % (0.0-1.5); BG OXYGEN SATURATION 90.4 % (92.0-98.5); BG OXYHEMOGLOBIN 89.5 % (94.0-97.0); BG PCO2 45.5 mmHg (35.0-45.0); BG PH 7.387 (7.350-7.450); BG PO2 61.2 mmHg (75.0-100.0); BG SAMPLE SITE RIGHT BRACHIAL; BG TOTAL HEMOGLOBIN 13.2 g/dL (12.0-18.0); BG VENT MODE ROOM AIR
[2020-03-18 11:20] LABS: PLATELET ESTIMATE NORMAL
[2020-03-18 12:00] VITALS: BP 128/81
[2020-03-18 16:00] VITALS: BP 121/83
[2020-03-18] MEDS: CEFTRIAXONE 1 G PREMIX 50 ML IV SCH (17:34)
[2020-03-18 20:00] VITALS: BP 123/77
[2020-03-18] MEDS: ZOLPIDEM TARTRATE 5MG TABLET PO PRN (20:03)
[2020-03-18] MEDS: ACETAMINOPHEN 325MG TABLET PO PRN (20:04)
[2020-03-18] MEDS: ATORVASTATIN CALCIUM 20MG TABLET PO SCH (20:04)
[2020-03-18] MEDS: AZITHROMYCIN 500 MG TABLET PO SCH (21:16)
[2020-03-19] VITALS: BP 134/88
[2020-03-19] MEDS: IPRATROPIUM/ALBUTEROL 0.5-3(2.5)MG/3ML NEB HHN SCH ×4 (02:30→20:32)
[2020-03-19 04:00] VITALS: BP 114/72
[2020-03-19] MEDS: BLOOD SUGAR DIAGNOSTIC STRIP TEST SCH ×4 (06:13→21:23)
[2020-03-19] MEDS: SODIUM CHLORIDE 0.9% INJ 3ML FLUSH IVF SCH ×3 (06:14→22:03)
[2020-03-19] MEDS: INSULIN LISPRO 100 UNITS/ML SUBCUT SCH ×4 (06:19→22:14)
[2020-03-19 08:09] VITALS: BP 122/85
[2020-03-19] MEDS: ASPIRIN 81MG EC TABLET PO SCH ×2 (08:42→17:03)
[2020-03-19] MEDS: LOSARTAN POTASSIUM 25 MG TABLET PO SCH ×2 (08:42→22:02)
[2020-03-19] MEDS: ENOXAPARIN 30MG/0.3ML SYR SUBCUT SCH ×2 (08:42→22:02)
[2020-03-19] MEDS: CLOPIDOGREL 75MG TABLET PO SCH (08:42)
[2020-03-19] MEDS: FUROSEMIDE 40MG/4ML VIAL IVP SCH (08:42)
[2020-03-19] MEDS: METHYLPREDNISOLONE SOD SUCC 40 MG/ML VIAL IV SCH (08:42)
[2020-03-19] MEDS: CARVEDILOL 3.125 MG TABLET PO SCH ×2 (08:42→17:03)
[2020-03-19] MEDS: AMLODIPINE 10MG TABLET PO SCH (08:42)
[2020-03-19] MEDS: INSULIN GLARGINE UD 100 UNITS/ML SYR SUBCUT SCH ×2 (10:54→22:00)
[2020-03-19 11:55] VITALS: BP 140/90
[2020-03-19] MEDS: ACETAMINOPHEN 325MG TABLET PO PRN ×2 (14:23→22:03)
[2020-03-19 15:43] VITALS: BP 118/75
[2020-03-19 20:00] VITALS: BP 138/99
[2020-03-19] MEDS: ZOLPIDEM TARTRATE 5MG TABLET PO PRN (22:02)
[2020-03-19] MEDS: ATORVASTATIN CALCIUM 20MG TABLET PO SCH (22:02)
[2020-03-20] VITALS (10 sets, daily range): BP systolic 107–138; BP diastolic 20–86
[2020-03-20] MEDS: INSULIN GLARGINE UD 100 UNITS/ML SYR SUBCUT SCH ×3 (01:07→22:39)
[2020-03-20] MEDS: IPRATROPIUM/ALBUTEROL 0.5-3(2.5)MG/3ML NEB HHN SCH ×3 (02:16→12:15)
[2020-03-20] MEDS: BLOOD SUGAR DIAGNOSTIC STRIP TEST SCH ×4 (05:53→19:59)
[2020-03-20] MEDS: SODIUM CHLORIDE 0.9% INJ 3ML FLUSH IVF SCH ×3 (05:54→22:38)
[2020-03-20 06:21] LABS: HEMATOCRIT. 36.3 % (36.0-48.0); HEMOGLOBIN. 11.9 g/dL (12.0-16.0); MEAN CORPUSCULAR HEMOGLOBIN 24.8 pg (28.0-32.0); MEAN CORPUSCULAR VOLUME 75.4 fL (81.0-99.0); MEAN PLATELET VOLUME 8.5 fl (7.4-10.4); PLATELET 174 x1000/uL (130-400); RED BLOOD CELL COUNT 4.81 mill/uL (4.2-5.4); RED CELL DISTRIBUTION WIDTH 19.5 % (11.6-14.6)
[2020-03-20] MEDS: INSULIN LISPRO 100 UNITS/ML SUBCUT SCH ×4 (06:28→20:13)
[2020-03-20] MEDS: LOSARTAN POTASSIUM 25 MG TABLET PO SCH ×2 (08:16→22:39)
[2020-03-20] MEDS: AMLODIPINE 10MG TABLET PO SCH (08:16)
[2020-03-20] MEDS: CARVEDILOL 3.125 MG TABLET PO SCH ×2 (09:00→16:50)
[2020-03-20] MEDS ORDERED: METHYLPREDNISOLONE SOD SUCC 40 MG/ML VIAL IV SCH (09:00)
[2020-03-20] MEDS: FUROSEMIDE 40MG/4ML VIAL IVP SCH (09:35)
[2020-03-20] MEDS: CLOPIDOGREL 75MG TABLET PO SCH (09:36)
[2020-03-20] MEDS: ASPIRIN 81MG EC TABLET PO SCH ×2 (09:36→16:51)
[2020-03-20] MEDS: ENOXAPARIN 30MG/0.3ML SYR SUBCUT SCH ×2 (09:36→20:12)
[2020-03-20] MEDS ORDERED: POTASSIUM CHLORIDE 20MEQ TABLET SR PO NR (10:15)
[2020-03-20 11:31] LABS: PLATELET ESTIMATE NORMAL
[2020-03-20] MEDS: MILRINONE 20MG-DEXT 5% PREMIX 100 ML IV SCH ×2 (13:49→19:52)
[2020-03-20] MEDS: ATORVASTATIN CALCIUM 20MG TABLET PO SCH (20:14)
[2020-03-20] MEDS ORDERED: FUROSEMIDE 100MG/10ML VIAL IVP SCH (22:15)
[2020-03-20] MEDS ORDERED: METOLAZONE 10MG TABLET PO SCH (23:00)
[2020-03-20] MEDS ORDERED: POTASSIUM CHLORIDE 20MEQ/PACKET PO SCH (23:00)
[2020-03-21] VITALS (11 sets, daily range): BP systolic 99–171; BP diastolic 46–80
[2020-03-21] MEDS: IPRATROPIUM/ALBUTEROL 0.5-3(2.5)MG/3ML NEB HHN SCH ×5 (00:01→20:17)
[2020-03-21] MEDS: ACETAMINOPHEN 325MG TABLET PO PRN (02:41)
[2020-03-21] MEDS: MILRINONE 20MG-DEXT 5% PREMIX 100 ML IV SCH ×4 (02:43→18:58)
[2020-03-21 06:26] LABS: HEMATOCRIT. 40.2 % (36.0-48.0); HEMOGLOBIN. 13.1 g/dL (12.0-16.0); MEAN CORPUSCULAR HEMOGLOBIN 24.3 pg (28.0-32.0); MEAN CORPUSCULAR VOLUME 74.5 fL (81.0-99.0); MEAN PLATELET VOLUME 7.6 fl (7.4-10.4); PLATELET 195 x1000/uL (130-400); RED BLOOD CELL COUNT 5.39 mill/uL (4.2-5.4); RED CELL DISTRIBUTION WIDTH 19.6 % (11.6-14.6)
[2020-03-21] MEDS: SODIUM CHLORIDE 0.9% INJ 3ML FLUSH IVF SCH ×3 (06:38→22:28)
[2020-03-21] MEDS: BLOOD SUGAR DIAGNOSTIC STRIP TEST SCH ×4 (06:42→21:00)
[2020-03-21] MEDS ORDERED: LIDOCAINE HCL 1% 20ML VIAL (Pyxis) INJ ONE ×4 (07:34→09:01)
[2020-03-21] MEDS ORDERED: IODIXANOL 320MG/ML 100 ML BOTTLE IV ONE (07:34)
[2020-03-21] MEDS ORDERED: GENTAMICIN/NS IRRIGATION 0 ML IR ONE (07:35)
[2020-03-21] MEDS: AMLODIPINE 10MG TABLET PO SCH (08:01)
[2020-03-21] MEDS: LOSARTAN POTASSIUM 25 MG TABLET PO SCH ×2 (08:01→21:52)
[2020-03-21] MEDS: FUROSEMIDE 40MG/4ML VIAL IVP SCH (08:01)
[2020-03-21] MEDS: CARVEDILOL 3.125 MG TABLET PO SCH ×2 (08:02→17:28)
[2020-03-21] MEDS: INSULIN LISPRO 100 UNITS/ML SUBCUT SCH ×4 (08:03→22:26)
[2020-03-21] MEDS ORDERED: IOHEXOL-300 100 ML BOTTLE ONE (08:17)
[2020-03-21] MEDS ORDERED: GENTAMICIN/NS IRRIGATION 500 ML IR ONE (08:17)
[2020-03-21] MEDS ORDERED: GENTAMICIN SULF 40MG/ML 2ML VIAL ONE (08:19)
[2020-03-21] MEDS ORDERED: FENTANYL CITRATE/PF 50MCG/ML 2ML VIAL ONE (08:25)
[2020-03-21] MEDS ORDERED: MIDAZOLAM HCL 2 MG/2 ML VIAL ONE ×4 (08:26→10:26)
[2020-03-21] MEDS ORDERED: DIPHENHYDRAMINE 50MG/ML VIAL ONE (08:26)
[2020-03-21] MEDS ORDERED: CEFAZOLIN SODIUM 1000MG/VIAL ONE (08:29)
[2020-03-21] MEDS ORDERED: SODIUM CHLORIDE 0.9% 10ML VIAL ONE (08:29)
[2020-03-21] MEDS: ASPIRIN 81MG EC TABLET PO SCH ×2 (09:00→17:26)
[2020-03-21] MEDS ORDERED: PROPOFOL 200MG/20ML VIAL IV ONE (09:01)
[2020-03-21] MEDS: INSULIN GLARGINE UD 100 UNITS/ML SYR SUBCUT SCH ×2 (10:00→22:26)
[2020-03-21 10:35] LABS: PLATELET ESTIMATE NORMAL
[2020-03-21] MEDS ORDERED: EPHEDRINE SULFATE 50MG/ML VIAL ONE (11:19)
[2020-03-21] MEDS ORDERED: HYDROCODONE/ACETAMINOPHEN 5/325MG TABLET PO PRN (11:30)
[2020-03-21] MEDS: CLOPIDOGREL 75MG TABLET PO SCH (17:26)
[2020-03-21] MEDS: CEFAZOLIN 1000MG PREMIX 50 ML IV SCH (20:55)
[2020-03-21] MEDS ORDERED: FUROSEMIDE 40MG/4ML VIAL IVP SCH (21:15)
[2020-03-21] MEDS: ATORVASTATIN CALCIUM 20MG TABLET PO SCH (21:52)
[2020-03-21] MEDS ORDERED: MILRINONE 20MG-DEXT 5% PREMIX 100 ML IV PRN (22:15)
[2020-03-22] VITALS (11 sets, daily range): BP systolic 97–127; BP diastolic 52–84
[2020-03-22] MEDS: IPRATROPIUM/ALBUTEROL 0.5-3(2.5)MG/3ML NEB HHN SCH ×3 (00:52→13:09)
[2020-03-22] MEDS: CEFAZOLIN 1000MG PREMIX 50 ML IV SCH (03:28)
[2020-03-22] MEDS: SODIUM CHLORIDE 0.9% INJ 3ML FLUSH IVF SCH ×2 (05:51→14:00)
[2020-03-22] MEDS: BLOOD SUGAR DIAGNOSTIC STRIP TEST SCH ×3 (06:17→17:25)
[2020-03-22 08:08] LABS: HEMATOCRIT. 42.1 % (36.0-48.0); HEMOGLOBIN. 13.6 g/dL (12.0-16.0); MEAN CORPUSCULAR HEMOGLOBIN 24.2 pg (28.0-32.0); MEAN PLATELET VOLUME 7.8 fl (7.4-10.4); PLATELET 192 x1000/uL (130-400); RED BLOOD CELL COUNT 5.62 mill/uL (4.2-5.4); RED CELL DISTRIBUTION WIDTH 19.7 % (11.6-14.6)
[2020-03-22] MEDS: CLOPIDOGREL 75MG TABLET PO SCH (08:38)
[2020-03-22] MEDS: FUROSEMIDE 40MG/4ML VIAL IVP SCH (08:38)
[2020-03-22] MEDS: LOSARTAN POTASSIUM 25 MG TABLET PO SCH (08:38)
[2020-03-22] MEDS: ASPIRIN 81MG EC TABLET PO SCH ×2 (08:39→17:28)
[2020-03-22] MEDS: CARVEDILOL 3.125 MG TABLET PO SCH ×2 (08:39→17:28)
[2020-03-22] MEDS: AMLODIPINE 10MG TABLET PO SCH (08:39)
[2020-03-22] MEDS: INSULIN LISPRO 100 UNITS/ML SUBCUT SCH ×3 (08:47→17:29)
[2020-03-22] MEDS: INSULIN GLARGINE UD 100 UNITS/ML SYR SUBCUT SCH (10:54)
[2020-03-22 21:08] LABS: PLATELET ESTIMATE NORMAL
== END 2020-03-22 18:47 | disposition home health service (06) | DRG 710 ==
LOC: ER 20:22 → 5WST 03-13 03:24 → EDBEDREQSVC 03-13 03:29 → EDBEDREQTM 03-13 03:29 → EDBEDREQ 03-13 03:29 → ENRESERV 03-13 22:47 → ER 03-13 23:40 → 5WST 03-14 00:33 → 3WST 03-20 13:11
PROVIDERS: ADMIT Internal Medicine; ATTEND Internal Medicine
PROC: 5A09357 Assistance with Respiratory Ventilation, Less than 24 Consecutive Hours, Continuous Positive Airway Pressure (ICD-10-PCS; 2020-03-18)
PROC: 5A09357 Assistance with Respiratory Ventilation, Less than 24 Consecutive Hours, Continuous Positive Airway Pressure (ICD-10-PCS; 2020-03-20)
PROC: 0JH608Z Insertion of Defibrillator Generator into Chest Subcutaneous Tissue and Fascia, Open Approach (ICD-10-PCS; principal; 2020-03-21)
PROC: 02HK3KZ Insertion of Defibrillator Lead into Right Ventricle, Percutaneous Approach (ICD-10-PCS; 2020-03-21)
PROC: B5171ZZ Fluoroscopy of Left Subclavian Vein using Low Osmolar Contrast (ICD-10-PCS; 2020-03-21)
PROC: 02HP32Z Insertion of Monitoring Device into Pulmonary Trunk, Percutaneous Approach (ICD-10-PCS; 2020-03-21)
PROC: 5A09357 Assistance with Respiratory Ventilation, Less than 24 Consecutive Hours, Continuous Positive Airway Pressure (ICD-10-PCS; 2020-03-21)
DX: A41.9 Sepsis, unspecified organism (principal); J96.22 Acute and chronic respiratory failure with hypercapnia; I47.2 Ventricular tachycardia; E46 Unspecified protein-calorie malnutrition; I50.23 Acute on chronic systolic (congestive) heart failure; E87.2 Acidosis; J18.9 Pneumonia, unspecified organism; E11.51 Type 2 diabetes mellitus with diabetic peripheral angiopathy without gangrene; I27.29 Other secondary pulmonary hypertension; E66.2 Morbid (severe) obesity with alveolar hypoventilation; I11.0 Hypertensive heart disease with heart failure; E78.5 Hyperlipidemia, unspecified; E87.6 Hypokalemia; I25.10 Atherosclerotic heart disease of native coronary artery without angina pectoris; I25.5 Ischemic cardiomyopathy; I34.0 Nonrheumatic mitral (valve) insufficiency; J44.0 Chronic obstructive pulmonary disease with (acute) lower respiratory infection; J44.1 Chronic obstructive pulmonary disease with (acute) exacerbation; L97.919 Non-pressure chronic ulcer of unspecified part of right lower leg with unspecified severity; F17.210 Nicotine dependence, cigarettes, uncomplicated; M19.90 Unspecified osteoarthritis, unspecified site; I87.2 Venous insufficiency (chronic) (peripheral); Z60.2 Problems related to living alone; Z20.828 Contact with and (suspected) exposure to other viral communicable diseases; I25.2 Old myocardial infarction; Z68.37 Body mass index [BMI] 37.0-37.9, adult; Z88.5 Allergy status to narcotic agent; Z79.899 Other long term (current) drug therapy; Z95.1 Presence of aortocoronary bypass graft; Z59.0 Homelessness; Z79.02 Long term (current) use of antithrombotics/antiplatelets; Z79.82 Long term (current) use of aspirin; Z95.5 Presence of coronary angioplasty implant and graft; Z71.6 Tobacco abuse counseling; Z71.3 Dietary counseling and surveillance
CPT/HCPCS: 33207; 33249; 36415; 36600; 71045; 72191; 73706; 75820; 80048; 80053; 80305; 80320; 81003; 81025; 82140; 82375; 82550; 82553; 82805; 82962; 83605; 83735; 83880; 84145; 84484; 85025; 93005; 93451; 93970; 94640; 94660; 99285; C1722; C1893; J0360; J0456; J0690; J0696; J1200; J1580; J1644; J1650; J1815; J1940; J2060; J2250; J2260; J2704; J2920; J3010; J3490; J7030; J7060; Q9967; C9803-CS; G0480; U0003-CS